=== PATIENT | female | born 1960 | race Caucasian/White ===

== ENCOUNTER 2017-08-20 10:19 | Emergency (ER) | payer OTHER ==
[~2017-08-20] VITALS: Ht 154.9 cm; Wt 54.6 kg
[~2017-08-20 10:19] MED LIST: ACET-7142
[2017-08-20 10:24] VITALS: BP 109/59
--- NOTE | 2017-08-20 10:31 | NUR ---
Antonio hays in ED - 08/20/17 at 1043 by MMTHEM Patient carried to bed 1 by family. RN evaluating patient at bedside.
--- NOTE | 2017-08-20 10:43 | NUR ---
Patient ambulated to bed 1 with family. RN evaluating patient at bedside.
--- NOTE | 2017-08-20 10:52 | NUR ---
PATIENT PRESENTS TO ED WITH C/O HEADACHE, BODYACHES, ABDOMINAL PAIN WITH NAUSEA /VOMITING X 2 DAYS DENIES WATER/LOOSE STOOLS--- HX--PAIN MANAGEMENT, UPPER BACK PAIN RX--IBUPROFEN , GABAPENTIN; DENIES DIARRHEA; SKIN IS PINK/WARM/DRY; AAOX4 WITH EVEN AND STEADY GAIT; LUNGS CLEAR BL; HR EVEN AND REGULAR; PT DENIES ANY FEVER, CP, SOB, OR COUGH AT THIS TIME; PATIENT STATES PAIN OF 7/10 AT THIS TIME; VSS; PATIENT POSITIONED FOR COMFORT; HOB ELEVATED; BEDRAILS UP X2; BED DOWN. ER MD MADE AWARE OF PT STATUS.
--- NOTE | 2017-08-20 10:54 | NUR ---
Dr. Lou evaluating patient at bedside.
[2017-08-20] MEDS ORDERED: SUMAtriptan 25 MG TAB PO ONE (11:00)
[2017-08-20] MEDS ORDERED: ACETAMINOPHEN EXTRA STRENGTH 500 MG TAB PO ONE (11:00)
--- NOTE | 2017-08-20 11:28 | NUR ---
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
[2017-08-20 12:30] VITALS: BP 112/61
--- NOTE | 2017-08-20 12:30 | NUR ---
Patient discharged with v/s stable. Written and verbal after care instructions given and explained. Patient verbalized understanding. Ambulatory with steady gait. All questions addressed prior to discharge. Advised to follow up with PMD.
== END 2017-08-20 12:30 | disposition home or self-care (01) ==
LOC: MED 10:19
DX: G89.29 Other chronic pain (principal); M54.6 Pain in thoracic spine; R51 Headache; Z88.6 Allergy status to analgesic agent
CPT/HCPCS: 72072; 72110; 81002; 81025; 99284

== ENCOUNTER 2018-01-02 18:35 | Emergency (ER) | payer OTHER ==
[~2018-01-02] VITALS: Ht 154.9 cm; Wt 54.0 kg
[2018-01-02 18:41] VITALS: BP 128/75
--- NOTE | 2018-01-02 20:13 | NUR ---
PT AMBULATED TO ER BED 11
--- NOTE | 2018-01-02 20:29 | NUR ---
57Y/F PRESENTS TO ER C/O RT EAR PAIN X2 DAYS, AND LEFT EAR "FLAKYNESS" X1 MONTH. PT DENIES DRAINAGE OR BLEEDING TO EAR, NONE NOTED AT THIS TIME. PAIN 10/10 TO RT EAR, RADIATING AROUND RT EAR AND AND UPPER NECK AREA. PT TOOK TYLENOL THIS AM.
[2018-01-02 21:48] VITALS: BP 122/62
--- NOTE | 2018-01-02 21:50 | NUR ---
Patient discharged with v/s stable. Written and verbal after care instructions given and explained. Patient alert, oriented and verbalized understanding of instructions. Ambulatory with steady gait. All questions addressed prior to discharge. ID band removed. Patient advised to follow up with PMD. Rx of PROVERA 10MG, MOTRIN 800MG, ZOFRAN 8MG given. Patient educated on indication of medication including possible reaction and side effects. Opportunity to ask questions provided and answered.
== END 2018-01-02 21:50 | disposition home or self-care (01) ==
LOC: MED 18:35
DX: J02.9 Acute pharyngitis, unspecified (principal); H92.01 Otalgia, right ear
CPT/HCPCS: 99283

== ENCOUNTER 2019-04-05 17:02 | Emergency (ER) | payer OTHER ==
[~2019-04-05] VITALS: Ht 154.9 cm; Wt 56.7 kg
[2019-04-05 17:09] VITALS: BP 108/61
[2019-04-05 17:26] VITALS: BP 108/61
== END 2019-04-05 17:25 | disposition home or self-care (01) ==
LOC: MED 17:02
DX: H66.92 Otitis media, unspecified, left ear (principal); H60.92 Unspecified otitis externa, left ear; H92.01 Otalgia, right ear; Z88.6 Allergy status to analgesic agent; Z79.1 Long term (current) use of non-steroidal anti-inflammatories (NSAID)
CPT/HCPCS: 99283

== ENCOUNTER 2021-09-13 12:41 | Emergency (ER) | payer OTHER ==
[~2021-09-13] VITALS: Ht 154.9 cm; Wt 56.7 kg
[2021-09-13 13:37] VITALS: BP 118/72
--- NOTE | 2021-09-13 13:50 | NUR ---
PT TAKEN TO ER BED 7
--- NOTE | 2021-09-13 14:00 | NUR ---
61-year-old female BIBA for abdominal pain x 1 week. Patient has been sick with flulike symptoms since early August and tested positive for COVID on 08/27/2021. also complains of fever, chills, cough, chest pain, shortness of breath, weakness, vomiting, diarrhea. Patient was seen at [facility] where a CT abdomen/pelvis scan was done which came back negative. Patient tested negative for COVID on 09/07/2021. Patient denies loss of taste/smell, urinary symptoms, GI bleed symptoms. pmh: fibromyalgia, anxiety
[2021-09-13] MEDS ORDERED: NACL 0.9% 1,000 ML IV ONE ×3 (14:05→18:00)
[2021-09-13] MEDS ORDERED: MORPHINE SULFATE 4 MG/ML SYR IVP ONE ×2 (14:05→17:25)
[2021-09-13] MEDS ORDERED: ONDANSETRON 4 MG/2 ML VIAL IVP ONE ×2 (14:05→16:35)
[2021-09-13] MEDS ORDERED: ACETAMINOPHEN 325 MG TAB PO ONE (14:05)
--- NOTE | 2021-09-13 14:14 | NUR ---
DR FIELD AT BEDSIDE EVALUATING PT
--- NOTE | 2021-09-13 14:39 | NUR ---
IFLUENZA AND SHAHLA SWABS DONE. HANDED TO LAB
--- NOTE | 2021-09-13 14:58 | NUR ---
CONSENT FOR CT WITH CONTRAST SIGNED AND SECURED AT THIS TIME
[2021-09-13 14:59] LABS: BASOPHILS % (AUTO) 0.3 % (0.0-2.0); EOSINOPHILS # (AUTO) 0.1 K/uL (0-0.4); EOSINOPHILS % (AUTO) 0.6 % (0.0-4.0); HEMATOCRIT 34.3 % (36-48); HEMOGLOBIN 11.4 g/dL (12.0-16.0); LYMPHOCYTES # (AUTO) 0.6 K/uL (2.5-16.5); LYMPHOCYTES % (AUTO) 4.5 % (20.5-51.1); MEAN CORPUSCULAR HEMOGLOBIN 29 pg (27-31); MEAN CORPUSCULAR HGB CONC 33 g/dL (33-37); MEAN CORPUSCULAR VOLUME 87.1 fL (80-94); MONOCYTES # (AUTO) 0.6 K/uL (0.8-1.0); MONOCYTES % (AUTO) 4.5 % (1.7-9.3); NEUTROPHILS # (AUTO) 11.6 K/uL (1.8-7.7); NEUTROPHILS % (AUTO) 90.1 % (42.2-75.2); PLATELET COUNT (AUTO) 328 K/uL (140-450); RED BLOOD CELL COUNT(AUTO) 3.94 MIL/uL (4.20-5.40); RED CELL DISTRIBUTION WIDTH 14.9 % (11.6-13.7); WHITE BLOOD COUNT (AUTO) 12.9 K/uL (4.8-10.8)
[2021-09-13 15:15] LABS: PROTHROMBIN TIME 10.8 secs (10.8-13.4)
[2021-09-13 15:20] LABS: ALBUMIN 2.9 g/dL (3.4-5.0); ANION GAP 12.8 (8-16); CARBON DIOXIDE 24.2 mmol/L (21-32); CREATININE 0.8 mg/dL (0.6-1.3); TOTAL BILIRUBIN 0.3 mg/dL (0.0-1.0)
[2021-09-13 15:28] LABS: APPEARANCE,URINE CLEAR (CLEAR); BILIRUBIN,URINE NEGATIVE (NEGATIVE); BLOOD, URINE 1+ (NEGATIVE); LEUKOCYTE ESTERASE ,URINE NEGATIVE (NEGATIVE); NITRITE, URINE NEGATIVE (NEGATIVE); PH,URINE 5.5 (5.0-9.0); UGLUCOSE NEGATIVE (NEGATIVE)
[2021-09-13] MEDS ORDERED: MORPHINE SULFATE 2 MG/ML SYR IVP ONE (16:10)
[2021-09-13 16:25] LABS: COLOR,URINE STRAW (YELLOW)
[2021-09-13 16:26] LABS: RBC,URINE 0-5 /HPF (0-5); WBC,URINE 0-5 /HPF (0-5)
--- NOTE | 2021-09-13 16:28 | NUR ---
PT COMPLAINED OF 8/10 HEADACHE. MD AWARE. MEDICATION GIVEN ORDERED.
[2021-09-13] MEDS ORDERED: ONDA-188 PO (16:37)
[2021-09-13] MEDS ORDERED: ATRO1TAB PO (16:37)
[2021-09-13] MEDS ORDERED: ACET-8386 PO (16:37)
--- NOTE | 2021-09-13 17:15 | NUR ---
PT COMPLAINED OF NAUSEA AND SEVERE HEADACHE 04/04. PT HYPOTENSIVE AT 80/50. DR MCKEON AWARE. PLACED NEW ORDERS. TO HOLD DISCHARGE FOR NOW.
[2021-09-13] MEDS ORDERED: KETOROLAC 30 MG/ML VIAL IVP ONE (19:15)
--- NOTE | 2021-09-13 19:39 | NUR ---
GAVE REPORT TO JUDITH LYMAN. ALL CARES TRANSFERRED AT [facility] TIME.
[2021-09-13 20:20] VITALS: BP 77/34
--- NOTE | 2021-09-13 20:20 | NUR ---
Patient discharged with v/s stable. Written and verbal after care instructions given and explained. Patient alert, oriented and verbalized understanding of instructions. Ambulatory with steady gait. All questions addressed prior to discharge. ID band removed. Patient advised to follow up with PMD. Rx of hydrocodon-acetametaphin 5-325, lomotil, sofran odt given. Opportunity to ask questions provided and answered.
== END 2021-09-13 20:20 | disposition home or self-care (01) ==
LOC: MED 12:41
DX: R11.10 Vomiting, unspecified (principal); Z20.822 Contact with and (suspected) exposure to COVID-19; R19.7 Diarrhea, unspecified; F41.9 Anxiety disorder, unspecified; Z79.899 Other long term (current) drug therapy; Z88.5 Allergy status to narcotic agent; Z88.8 Allergy status to other drugs, medicaments and biological substances; Z98.890 Other specified postprocedural states
CPT/HCPCS: 36415; 71045; 74177; 80053; 81001; 83605; 83690; 85025; 85610; 85730; 87040; 87086; 87426; 87804; 93005; 96361; 96374; 96375; 96376; 99285; J1885; J2270; J2405; J7030; Q0092; Q9967